=== PATIENT | female | born 1970 | race American Indian/Alaskan Native ===

== ENCOUNTER 2017-03-20 11:18 | Emergency (ER) | payer MEDICAID ==
[2017-03-20 12:28] VITALS: BP 156/98
[2017-03-20] MEDS ORDERED: TORADOL IM ONE (13:26)
--- NOTE | 2017-03-20 22:44 | Emergency Department Report ---
Entered by ZAHIRA HUGHES, acting as scribe for KASSIE FERNANDEZ NP. ED Extremity Problem HPI - General Chief complaint: Pain General Stated complaint: LT KNEE PAIN Time Seen by Provider: 03/20/17 12:38 Source: patient Mode of arrival: Ambulatory Limitations: No Limitations - History of Present Illness Initial comments: This is a 46 y/o female, nontoxic, well nourished in appearance, no acute signs of distress with a PMHx arthritis, psychiatric treatment, chronic left knee pain , and shingles presents to the ED c/o an acute episode of chronic left knee pain that began 1 day ago. Rates pain an 8/10 in severity, which she describes as burning in quality. Aggravated with movement and weight bearing, and alleviated with immobilization. Denies any recent left knee injury/trauma, numbness, and tingling. Notes she began having chronic left knee pain secondary to having 2 quarter-sized cysts removed from left knee on 11/04/2016 in [place] and the pain is still there. Pateint stated the pain is the same pain as she had before surgery and is not relieved after surgery. Took Tylenol Advil, and Motrin, and applied ice with some relief. Patient states she just moved here from [place] and doesn't have a PCP to prescribed her medication. Patient states she was given Clancy/Vicodin for pain. Patient also requests refills for psychiatric medications. Allergic to tramadol. Patient is requesting for medication refill until she is able to see a provider within a week. MD Complaint: extremity pain Onset/Timin -: days(s) Location: left, knee History of Same: Yes -: No myalgia, Yes arthralgia, No fever, No associated dyspnea, No associated chest pain Radiation: none Severity scale (0 -10): 8 Quality: burning Consistency: constant Improves with: immobilization Worsens with: weight bearing Associated Symptoms: denies other symptoms, arthralgias (LT knee). denies: chest pain, shortness of breath, fever, myalgias, rash - Related Data Previous Rx's Medication Instructions Recorded Last Taken Type QUEtiapine [Seroquel] 100 mg PO BID #28 tab 09/17/13 10/02/13 20:00 Rx Acyclovir [Zovirax Tab] 800 mg PO 5XD #50 tab 02/16/15 Unknown Rx Ibuprofen [Motrin 800 MG tab] 800 mg PO Q8HR PRN #30 tablet 02/16/15 Unknown Rx Lisinopril [Zestril TAB] 10 mg PO QDAY #30 tablet 02/16/15 Unknown Rx PARoxetine [Paxil] 40 mg PO DAILY #30 tablet 02/16/15 Unknown Rx Quetiapine Fumarate [Seroquel] 100 mg PO BID #60 tablet 02/16/15 Unknown Rx Acetaminophen/Codeine [Tylenol 1 tab PO Q6H PRN #15 tab 07/15/15 Unknown Rx /Codeine # 3 tab] Ibuprofen [Motrin 800 MG tab] 800 mg PO Q8HR #30 tablet 07/15/15 Unknown Rx Lisinopril [Zestril TAB] 10 mg PO QDAY 7 Days 03/20/17 Unknown Rx Naproxen [Naprosyn] 500 mg PO BID #30 tablet 03/20/17 Unknown Rx Paroxetine HCl [PARoxetine] 40 mg PO QAM 1 Days 03/20/17 Unknown Rx Prazosin [Minipress] 2 mg PO BID 7 Days 03/20/17 Unknown Rx QUEtiapine [SEROquel] 300 mg PO BID 7 Days 03/20/17 Unknown Rx Allergies Allergy/AdvReac Type Severity Reaction Status Date / Time tramadol Allergy Rash Verified 07/15/15 09:17 ED Review of Systems Comment: All other systems reviewed and negative Constitutional: denies: chills, diaphoresis, fever, weakness Eyes: denies: eye pain, eye discharge, vision change ENT: denies: ear pain, throat pain Respiratory: denies: cough, orthopnea, shortness of breath, SOB with exertion, SOB at rest, stridor, wheezing Cardiovascular: denies: chest pain, palpitations, dyspnea on exertion, orthopnea , edema, syncope, paroxysmal nocturnal dyspnea Endocrine: no symptoms reported Gastrointestinal: denies: abdominal pain, nausea, vomiting, diarrhea Genitourinary: denies: urgency, dysuria, discharge Musculoskeletal: arthralgia (LT knee). denies: back pain, joint swelling, myalgia Skin: denies: rash, lesions Neurological: denies: headache, weakness, numbness, paresthesias Psychiatric: denies: anxiety, depression Hematological/Lymphatic: denies: easy bleeding, easy bruising ED Past Medical Hx - Past Medical History Previous Medical History?: Yes Hx Hypertension: Yes Hx CVA: No Hx Heart Attack/AMI: No Hx Congestive Heart Failure: No Hx Diabetes: No Hx Deep Vein Thrombosis: No Hx Pulmonary Embolism: No Hx GERD: No Hx Liver Disease: No Hx Renal Disease: No Hx of Cancer: No Hx Sickle Cell Disease: No Hx Arthritis: Yes Hx Headaches / Migraines: No Hx Seizures: No Hx Kidney Stones: No Hx Psychiatric Treatment: Yes (Depression) Hx Asthma: No Hx COPD: No Hx Tuberculosis: No Hx Dementia: No Hx HIV: No Additional medical history: Shingles - Surgical History Past Surgical History?: Yes Hx Coronary Stent: No Hx Open Heart Surgery: No Hx Pacemaker: No Hx Internal Defibrillator: No Hx Cholecystectomy: No Hx Appendectomy: No Hx Breast Surgery: No Additional Surgical History: x 2. Ovarian Cyst removal. Removal of fibroid. knee surgery - Family History Family history: no significant - Social History Smoking Status: Current Every Day Smoker Substance Use Type: None - Medications Home Medications: Home Medications Medication Instructions Recorded Confirmed Last Taken Type QUEtiapine [Seroquel] 100 mg PO BID #28 tab 09/17/13 02/16/15 10/02/13 20:00 Rx Acyclovir [Zovirax Tab] 800 mg PO 5XD #50 tab 02/16/15 Unknown Rx Ibuprofen [Motrin 800 MG tab] 800 mg PO Q8HR PRN #30 tablet 02/16/15 Unknown Rx Lisinopril [Zestril TAB] 10 mg PO QDAY #30 tablet 02/16/15 Unknown Rx PARoxetine [Paxil] 40 mg PO DAILY #30 tablet 02/16/15 Unknown Rx Quetiapine Fumarate [Seroquel] 100 mg PO BID #60 tablet 02/16/15 Unknown Rx Acetaminophen/Codeine [Tylenol 1 tab PO Q6H PRN #15 tab 07/15/15 Unknown Rx /Codeine # 3 tab] Ibuprofen [Motrin 800 MG tab] 800 mg PO Q8HR #30 tablet 07/15/15 Unknown Rx Lisinopril [Zestril TAB] 10 mg PO QDAY 7 Days 03/20/17 Unknown Rx Naproxen [Naprosyn] 500 mg PO BID #30 tablet 03/20/17 Unknown Rx Paroxetine HCl [PARoxetine] 40 mg PO QAM 1 Days 03/20/17 Unknown Rx Prazosin [Minipress] 2 mg PO BID 7 Days 03/20/17 Unknown Rx QUEtiapine [SEROquel] 300 mg PO BID 7 Days 03/20/17 Unknown Rx ED Physical Exam - General Limitations: No Limitations General appearance: alert, in no apparent distress - Head Head exam: Present: atraumatic, normocephalic - Eye Eye exam: Present: normal appearance, PERRL, EOMI Pupils: Present: normal accommodation - ENT ENT exam: Present: normal exam, normal orophraynx, mucous membranes moist, TM's normal bilaterally, normal external ear exam - Neck Neck exam: Present: normal inspection, full ROM. Absent: tenderness, meningismus, lymphadenopathy, thyromegaly - Respiratory Respiratory exam: Present: normal lung sounds bilaterally. Absent: respiratory distress, wheezes, rales, rhonchi, stridor, chest wall tenderness, accessory muscle use, decreased breath sounds - Cardiovascular Cardiovascular Exam: Present: regular rate, normal rhythm, normal heart sounds. Absent: bradycardia, tachycardia, irregular rhythm, systolic murmur, diastolic murmur, rubs, gallop - GI/Abdominal GI/Abdominal exam: Present: soft, normal bowel sounds. Absent: distended - Extremities Exam Extremities exam: Present: full ROM, tenderness (LT anterior knee), normal capillary refill. Absent: normal inspection, pedal edema, joint swelling, calf tenderness - Expanded Lower Extremity Exam Left Hip exam: Present: normal inspection, full ROM, external rotation, internal rotation, pelvic stability. Absent: tenderness, swelling, abrasion, laceration , ecchymosis, deformity, crepidus, dislocation, erythema, shortening Upper Leg exam: Present: normal inspection, full ROM. Absent: tenderness, swelling, abrasion, laceration, ecchymosis, deformity, crepidus, dislocation, erythema Knee exam: Present: full ROM, tenderness (LT anterior knee), full knee extension. Absent: normal inspection, swelling, abrasion, laceration, ecchymosis, deformity, crepidus, dislocation, erythema, effusion, pain w/ pronation/supination, posterior draw sign, pain/laxity with valgus, pain/laxity with varus Lower Leg exam: Present: normal inspection, full ROM. Absent: tenderness, swelling, abrasion, laceration, ecchymosis, deformity, crepidus, dislocation, erythema, palpable cord, Aliyah's sign Ankle exam: Present: normal inspection, full ROM. Absent: tenderness, swelling , abrasion, laceration, ecchymosis, deformity, crepidus, dislocation, erythema, anterior draw sign Foot/Toe exam: Present: normal inspection, full ROM. Absent: tenderness, swelling, abrasion, laceration, ecchymosis, deformity, crepidus, dislocation, erythema, amputation, puncture wound, foreign body, calcaneal tenderness, tenderness at base of 5th metatarsal, nail avulsion, subungual hematoma Neuro vascular tendon exam: Present: no vascular compromise. Absent: pulse deficit, abnormal cap refill, motor deficit, sensory deficit, tendon deficit, extremity cold to touch, pallor, abnormal 2-point discrimination, decreased fine /light touch, foot drop, peroneal nerve deficit, significant pain with passive ROM of distal joint Gait: Positive: observed and normal - Back Exam Back exam: Present: normal inspection, full ROM. Absent: tenderness, CVA tenderness (R), CVA tenderness (L), muscle spasm, paraspinal tenderness, vertebral tenderness, rash noted - Neurological Exam Neurological exam: Present: alert, oriented X3, CN II-XII intact, normal gait, reflexes normal. Absent: motor sensory deficit - Psychiatric Psychiatric exam: Present: normal affect, normal mood - Skin Skin exam: Present: warm, dry, intact. Absent: rash ED Course Vital Signs 03/20/17 03/20/17 12:21 13:41 Temperature 97.2 F L Pulse Rate 81 Respiratory 18 18 Rate Blood Pressure 156/98 [Right] O2 Sat by Pulse 100 Oximetry - Reevaluation(s) Reevaluation #1: 03/20/17 13:44 Patient is speaking in full sentences with no signs of distress. ED Disposition Clinical Impression: Left knee pain Qualifiers: Chronicity: unspecified Qualified Code(s): M25.562 - Pain in left knee Disposition: - TO HOME OR SELFCARE Is pt being admited?: No Does the pt Need Aspirin: No Condition: Stable Instructions: Knee Pain (ED), Naproxen (By mouth), RICE Therapy (ED) Additional Instructions: Follow-up with Dr. Monaco in 3-5 days or if symptoms worsen and continue return to the ED as soon as possible. Prescriptions: Lisinopril [Zestril TAB] 10 mg PO QDAY 7 Days Naproxen [Naprosyn] 500 mg PO BID #30 tablet Paroxetine HCl [PARoxetine] 40 mg PO QAM 1 Days Prazosin [Minipress] 2 mg PO BID 7 Days QUEtiapine [SEROquel] 300 mg PO BID 7 Days Referrals: PRIMARY CAREMD [Primary Care Provider] - 3-5 Days KWASI SARABIA MD [Staff Physician] - 3-[address] [facility] [Outside] - 3-5 Days [facility] [Outside] - 3-5 Days Forms: Work/School Release Form(ED) This documentation as recorded by the SAUL patricio JASMINE,accurately reflects the service I personally performed and the decisions made by ,KASSIE FERNANDEZ, [employer].
== END 2017-03-20 14:07 | disposition home or self-care (01) ==
LOC: ED 11:18
DX: M25.562 Pain in left knee (principal); G89.29 Other chronic pain; I10 Essential (primary) hypertension; M19.90 Unspecified osteoarthritis, unspecified site; F17.210 Nicotine dependence, cigarettes, uncomplicated; Z88.8 Allergy status to other drugs, medicaments and biological substances
CPT/HCPCS: 96372; 99282; J1885

== ENCOUNTER 2017-04-06 07:31 | Emergency (ER) | payer MEDICAID ==
[2017-04-06 08:07] VITALS: BP 165/83
[2017-04-06] MEDS ORDERED: NACL 0.9% 1000 ML 1,000 ML IV ONE (08:08)
--- NOTE | 2017-04-06 08:38 | Emergency Department Report ---
HPI - General Chief Complaint: Extremity Problem,Nontraumatic Time Seen by Provider: 04/06/17 08:08 - HPI HPI: This is a 46-year-old Afro-[place]ish female who presents to the emergency department via EMS with complaint of bilateral leg/knee pain that has been going on for the past 5 days. The patient says that she has a history of left leg tumor removal a couple of years ago. The patient says that she was at another hospital a few weeks ago and was told that they are "coming back." She has been trying muscle relaxers, Tylenol and aspirin and says she has not gotten any relief. Patient does appear to have some type of a psychiatric history and says that she has not gotten an appointment so she has been out of her medications for the past 2 days. The patient also admits to daily cocaine abuse but says she did not "do a lot." She denies being currently intoxicated. She denies any alcohol use. She denies any suicidal or homicidal ideations or any hallucinations. However the patient does appeared slightly agitated, demanding Dilaudid pain medication, and refusing any imaging or IV blood draw. When I spoke to the patient to do the history and physical, the patient says that she wants to leave and go somewhere else for pain medication. She says that her fianc is on the way to pick her up from the emergency department. ED Past Medical Hx - Past Medical History Hx Hypertension: Yes Hx CVA: No Hx Heart Attack/AMI: No Hx Congestive Heart Failure: No Hx Diabetes: No Hx Deep Vein Thrombosis: No Hx Pulmonary Embolism: No Hx GERD: No Hx Liver Disease: No Hx Renal Disease: No Hx Sickle Cell Disease: No Hx Arthritis: Yes Hx Headaches / Migraines: No Hx Seizures: No Hx Kidney Stones: No Hx Psychiatric Treatment: Yes (Depression) Hx Asthma: No Hx COPD: No Hx Tuberculosis: No Hx Dementia: No Hx HIV: No Additional medical history: Shingles - Surgical History Hx Coronary Stent: No Hx Open Heart Surgery: No Hx Pacemaker: No Hx Internal Defibrillator: No Hx Cholecystectomy: No Hx Appendectomy: No Hx Breast Surgery: No Additional Surgical History: x 2. Ovarian Cyst removal. Removal of fibroid. knee surgery - Social History Smoking Status: Current Every Day Smoker Substance Use Type: Alcohol, Cocaine, Marijuana - Medications Home Medications: Home Medications Medication Instructions Recorded Confirmed Last Taken Type QUEtiapine [Seroquel] 100 mg PO BID #28 tab 09/17/13 02/16/15 10/02/13 20:00 Rx Acyclovir [Zovirax Tab] 800 mg PO 5XD #50 tab 02/16/15 Unknown Rx Ibuprofen [Motrin 800 MG tab] 800 mg PO Q8HR PRN #30 tablet 02/16/15 Unknown Rx Lisinopril [Zestril TAB] 10 mg PO QDAY #30 tablet 02/16/15 Unknown Rx PARoxetine [Paxil] 40 mg PO DAILY #30 tablet 02/16/15 Unknown Rx Quetiapine Fumarate [Seroquel] 100 mg PO BID #60 tablet 02/16/15 Unknown Rx Acetaminophen/Codeine [Tylenol 1 tab PO Q6H PRN #15 tab 07/15/15 Unknown Rx /Codeine # 3 tab] Ibuprofen [Motrin 800 MG tab] 800 mg PO Q8HR #30 tablet 07/15/15 Unknown Rx Lisinopril [Zestril TAB] 10 mg PO QDAY 7 Days 03/20/17 Unknown Rx Naproxen [Naprosyn] 500 mg PO BID #30 tablet 03/20/17 Unknown Rx Paroxetine HCl [PARoxetine] 40 mg PO QAM 1 Days 03/20/17 Unknown Rx Prazosin [Minipress] 2 mg PO BID 7 Days 03/20/17 Unknown Rx QUEtiapine [SEROquel] 300 mg PO BID 7 Days 03/20/17 Unknown Rx ED Review of Systems ROS: Stated complaint: BILATERAL KNEE PX/ANXIETY/NO PSYCH MEDS 5+ DAYS Other details as noted in HPI Comment: All other systems reviewed and negative Constitutional: denies: chills, fever Eyes: denies: eye pain, eye discharge, vision change ENT: denies: ear pain, throat pain Respiratory: denies: cough, shortness of breath, wheezing Cardiovascular: denies: chest pain, palpitations Gastrointestinal: denies: abdominal pain, nausea, diarrhea Genitourinary: denies: urgency, dysuria, discharge Musculoskeletal: arthralgia. denies: joint swelling Skin: denies: rash, lesions, change in color Neurological: denies: headache, weakness, paresthesias Physical Exam - Physical Exam Vital Signs: Vital Signs 04/06/17 07:59 Temperature 98.7 F Pulse Rate 92 H Respiratory 18 Rate Blood Pressure 165/83 O2 Sat by Pulse 99 Oximetry Physical Exam: GENERAL: The patient is well-developed well-nourished. HENT: Normocephalic. Atraumatic. Patient has moist mucous membranes. EYES: Extraocular motions are intact. Pupils equal reactive to light bilaterally. NECK: Supple. Trachea is midline. CHEST/LUNGS: Clear to auscultation. There is no respiratory distress noted. HEART/CARDIOVASCULAR: Regular. There is no tachycardia. There is no gallop rub or murmur. ABDOMEN: Abdomen is soft, nontender. Patient has normal bowel sounds. There is no abdominal distention. SKIN: Skin is warm and dry. NEURO: The patient is awake, alert, and oriented. The patient is cooperative. The patient has no focal neurologic deficits. The patient has normal speech. Cranial nerves II through XII grossly intact. Normal-appearing gait. MUSCULOSKELETAL: There is no obvious deformity. Patient deferred palpation examination of the affected knee. There is no evidence of acute injury. ED Course Vital Signs 04/06/17 07:59 Temperature 98.7 F Pulse Rate 92 H Respiratory 18 Rate Blood Pressure 165/83 O2 Sat by Pulse 99 Oximetry ED Medical Decision Making - EKG Data -: EKG Interpreted by Me EKG shows normal: sinus rhythm, axis, intervals, QRS complexes, ST-T waves (T- wave inversions to the inferior and lateral leads) Rate: normal - EKG Data When compared to previous EKG there are: previous EKG unavailable Interpretation: other (sinus rhythm, T-wave inversions to the inferior and lateral leads, no ST elevation [place]) - Medical Decision Making 46-year-old female presents to the emergency department with complaint of left leg and knee pain but later complains of bilateral leg pain. The patient says that she has a history of a tumor being removed from that left leg and that some hospital told recently that it was coming back. Patient was not in the emergency department very long and did not have any significant wait within the waiting room, and yet is immediately demanding Dilaudid and/or strong pain medication. She is refusing any blood draw or any imaging to look into the source of her discomfort, she gets immediate pain medication. This is all prior to being able to get into her room for evaluation, which I did as soon as I had access to the chart status post triage. Soon as I got into the patient's room, she is saying that she wants the IV pulled and she wants to leave the hospital and go somewhere else specifically for pain medication. She does not appear to be concern as to what else might be a source of her discomfort. The patient is seen standing and walking around within the emergency department and does not appear unstable despite the significant discomfort within her lower extremities. She does not appear to have any obvious swelling, skin color change or lesions in the effected areas. Her vital signs were stable for the time that she was within the emergency department. The patient did admit to taking multiple muscle relaxers, Flexeril, as well as Tylenol and aspirin throughout the past few days. She denies taking any of these medications in a large single quantity and denies any intent in trying to harm herself. She only has been taking his medications with hopes of decreasing her discomfort. She also admits to a history of chronic cocaine abuse, using a daily, and says that she did a small amount last night and/or early this morning. She denies any alcohol consumption recently. The patient does appear slightly agitated. However she denies any suicidal or homicidal ideations, any hallucinations. She is AAO 3 and has intact cranial nerves. While the patient could be slightly manic, she does not appear to have any significant psychosis that was affected her activities of daily living. For all these reasons the patient does not appear to be a candidate to be made a 1013 and to be kept here against her will. I did make sure that she had a ride from the emergency department by her fianc in case of any level of intoxication. However since the patient is appearing to be of sound mind, she has the right to refuse any further imaging or intervention. At no point did I deny this patient pain medication or treatment, but the patient appeared to assume that she was not going to get what she wanted and therefore desired to leave. Patient did have an EKG done that showed some T-wave inversions to the inferior and lateral leads. There was no sign of any ST elevation. There is no previous EKG for comparison. Despite her history of cocaine use, she denies any chest pain, shortness of breath and does not appear to be in any type of respiratory or cardiac distress. Patient understands the risks of leaving AGAINST MEDICAL ADVICE including undiagnosed infection, malignancy, cardiovascular event and understands that any of these things could lead to loss of limb, worsening pain , systemic infection, coma or . Despite all this the patient still wants to leave and has signed out AGAINST MEDICAL ADVICE. - Differential Diagnosis arthritis, occult fracture, malignancy, septic joint Critical Care Time: No Critical care attestation.: If time is entered above; I have spent that time in minutes in the direct care of this critically ill patient, excluding procedure time. ED Disposition Clinical Impression: Cocaine abuse Leg pain Qualifiers: Laterality: bilateral Qualified Code(s): M79.604 - Pain in right leg; M79.605 - Pain in left leg Hypertension Qualifiers: Hypertension type: essential hypertension Qualified Code(s): I10 - Essential ( primary) hypertension Disposition: LEFT AGAINST MED ADVICE Is pt being admited?: No Condition: Stable Instructions: Hypertension (ED) Forms: AMA Form Time of Disposition: 08:32
== END 2017-04-06 08:58 | disposition left against medical advice (07) ==
LOC: ED 07:31
DX: M25.561 Pain in right knee (principal); M25.562 Pain in left knee; F14.10 Cocaine abuse, uncomplicated; I10 Essential (primary) hypertension
CPT/HCPCS: 93005; 93010